=== PATIENT | female | born 1970 | race Caucasian/White ===

== ENCOUNTER → 2016-07-09 | Outpatient (CLI) | payer OTHER ==
--- NOTE | 2016-07-10 06:09 | ECHO ---
DATE OF PROCEDURE: 07/09/2016 DATE OF : 1970 AGE: 45 REFERRING PROVIDER: Dr. Torres Nelson. PATIENT LOCATION: Outpatient. REASON FOR ECHOCARDIOGRAM: Chemotherapy drug monitoring. 2D MEASUREMENTS: IVS: 0.9 cm LV: 4.3 cm LVPW: 0.9 cm LA: 3.5 cm Aorta: 2.7 cm IVC: 1.5 cm DOPPLER MEASUREMENTS: Peak velocity across the aortic valve: 1.5 m/s Peak velocity across the LVOT: 0.9 m/s Mitral E: 0.92 2D COMMENTS: 1. Normal left ventricular size, wall thickness and normal global left ventricular systolic function. The estimated global left ventricular ejection fraction is 65%. 2. Normal left atrium. Normal right atrium and right ventricle. 3. The atrial septum appeared to be normal without evidence of defect or shunt. 4. Normal aortic root. 5. No pericardial effusion seen. 6. The aortic valve, mitral valve, and tricuspid valve appeared to be normal. The pulmonic valve and proximal pulmonary artery branches were not well visualized. 7. The inferior vena cava was normal in size, central venous pressure is most likely normal. DOPPLER: It detects only trace mitral regurgitation and trace tricuspid regurgitation. The estimated pulmonary artery systolic pressure seems to be normal. IMPRESSION: 1. Normal global left ventricular systolic function. 2. Trace mitral regurgitation. 3. Trace tricuspid regurgitation.
== END ==
LOC: M CARPUL 09:22
PROVIDERS: ATTEND Internal Medicine Hematology & Oncology
DX: C50.411 Malignant neoplasm of upper-outer quadrant of right female breast (principal); Z17.0 Estrogen receptor positive status [ER+]; C50.812 Malignant neoplasm of overlapping sites of left female breast; C50.811 Malignant neoplasm of overlapping sites of right female breast; I34.0 Nonrheumatic mitral (valve) insufficiency; I36.1 Nonrheumatic tricuspid (valve) insufficiency

== ENCOUNTER → 2016-07-10 | Outpatient (CLI) | payer OTHER ==
--- NOTE | 2016-07-14 13:58 | RADONC ---
RADIATION ONCOLOGY CONSULTATION NOTE: DATE: 07/10/2016 DIAGNOSIS: Right breast cancer. STAGE: IIIA, [id number] DIAGNOSIS: Left breast cancer. STAGE: II A, [id number] ECOG PERFORMANCE STATUS: 0 Ms. Acevedo is a very pleasant 45-year-old white female with the diagnosis what appears to be a well differentiated infiltrating ductal carcinoma of the left breast clinical stage II A, little [id number] as well as a moderately differentiated invasive ductal carcinoma of the right breast clinical stage III A, [id number] who is presenting to us today for consideration of postoperative radiation therapy at least to the right chest wall and axilla in order to increase the likelihood of achieving local control. HISTORY OF PRESENT ILLNESS: The patient was in the usual state of health but was found on MRI of the breast on 11/06/2015 to have a large enhancing mass in the right breast in the upper outer quadrant. The mass measured 4.5 cm x 3.4 cm x 5.4 cm. The right upper outer quadrant breast mass was located at the 10 o'clock position. It was 9 mm from the nearest overlying skin and 4.1 cm from the chest wall. It was 12 cm from the nipple. In addition in the contralateral left breast in the 9 o'clock position posterior one-third there was another spiculated enhancing density which was also suspicious. It measured 2.6 cm x 1 cm x 2 cm. It was 8 mm to the nearest chest wall and 9 mm to the nearest skin. It was 13 cm from the nipple. In addition, the patient had a notable lymph node in the right axilla measuring 1.1 cm x 1.5 cm. The patient underwent biopsy of her right breast region including a biopsy at the 9 o'clock position and a biopsy at the 11 o'clock position and both revealed moderately differentiated infiltrating ductal carcinoma. Both showed tumors that were estrogen receptor and progesterone receptor positive. The right 11 o'clock position biopsy showed HER2 positivity. Biopsy of the left side was done on 11/16/2015 and also showed invasive moderately differentiated ductal carcinoma in situ. That tumor was also was positive for estrogen and progesterone receptor status and was HER2 negative. A PET scan was done on 11/20/2015 and was negative for any evidence of metastatic disease. An MRI of the brain was done on 11/16/2015 and showed no evidence of metastatic disease to the brain. Ms. Acevedo subsequently received neoadjuvant systemic therapy with AC/TPH regimen. The chemotherapy was delivered from 11/29/2015 to 05/07/2016. The patient subsequently underwent bilateral mastectomies with left sentinel lymph node biopsy and right complete axillary lymph node dissection followed by immediate reconstruction on 06/10/2016. Pathology revealed on the right side three foci of moderately differentiated invasive ductal carcinoma measuring 6 cm and 5 cm as well as 11 cm in greatest dimension. Two of the foci were located in the upper outer quadrant and one in the upper inner quadrant. There was extensive ductal carcinoma in situ noted which was intermediate grade. There was no evidence of lymph vascular invasion and the margins were negative for malignancy. A total of 11 right axillary lymph nodes were sampled and one was positive for metastatic disease measuring 5 mm. It was negative for any evidence of extranodal extension. Pathological evaluation of the left breast showed a residual 1.1 cm x 1 cm x 0.6 cm well-differentiated invasive ductal carcinoma present. There was no evidence of lymph vascular invasion. Of note, a deep margin was noted to be positive for invasive carcinoma. Further discussion in the discussion section of the path report notes that the carcinoma margins span 5 mm at its deep margin. It was confirmed that this was invasive carcinoma. It also noted that a single duct with DCIS extended to within less than 0.1 mm from the adjacent superficial margin. The patient has done well since her surgery and expanders are in place. She is now presenting for discussion of postoperative radiation therapy. PAST MEDICAL HISTORY: The patient's past medical history is generally noncontributory. She has been in excellent health. ALLERGIES: The patient has no known drug allergies. SOCIAL HISTORY: The patient does not smoke cigarettes. She drinks alcohol socially. FAMILY HISTORY: The patient's family history is positive for her father with lung cancer and two maternal aunts with breast cancer. REVIEW OF SYSTEMS: The patient's review of systems is positive for some shortness of breath and some physical limitations secondary to the tenderness following her breast expanders. This is otherwise noncontributory. She denies nausea, vomiting, fevers, chills, night sweats, diplopia, headaches, anxiety or depression, anorexia, weight loss, visual disturbances, chest pain, urinary or bowel difficulties, bone pain, or neurological problems. PHYSICAL EXAMINATION: The patient is a well-developed, well-nourished female in no acute distress. HEENT exam is normocephalic, atraumatic. Extraocular movements are intact. There is no palpable cervical, supraclavicular, infraclavicular, axillary, or inguinal lymphadenopathy present. Lungs are clear to auscultation and percussion. Heart has a regular rate and rhythm. Abdomen is benign with no hepatosplenomegaly, masses, or tenderness. Breast examination reveals bilateral mastectomy scars present. The scars are not fully healed and have some scab on them. The expanders are in place. The skin over the expanders is in good condition with no evidence of nodularity or recurrent disease. Skeletal examination reveals no tenderness to pressure or percussion of the bony skeleton. Extremities reveal no clubbing, cyanosis, or edema. Neurologic exam is grossly intact, as is the remainder of the physical examination. IMAGING: I have personally reviewed the patient's PET/CT scan done 02/18/2016 which shows no evidence of metastatic disease. ASSESSMENT: I had a very lengthy discussion with this patient and we discussed in detail the potential benefits as well as possible acute and chronic sequelae of external beam radiation therapy. We discussed logistics of treatment planning, simulation and subsequent fractionated daily radiation treatment. In light of the fact that the scars are not yet fully healed and the fact that she is scheduled to see her plastic surgeon on Thursday for further injection into the expanders we cannot initiate treatment planning until after the breasts have reached their stable size which will be continued throughout the course of treatment. If this is truly the last injection of material to expand the breast, then radiation treatment planning can begin subsequently. With regards to the patient's right breast, it is clear from her initial size of the lesion as well as her lymphadenopathy that she would qualify for postoperative radiation therapy in an attempt to increase the likelihood of achieving local control. We discussed the data with that and I have reviewed the NCCN guidelines with her. With regards to the left breast. I am concerned at the possibility of a 5 mm positive margin which is deep and therefore beneath the car trimmer. If a small recurrence should recur, it would be very difficult to clinically palpate this. In addition, she also had a very close margin with DCIS. I have set this patient up for discussion at our multidisciplinary tumor conference to further deal with this issue. I have requested the pathology slides to be sent for further evaluation as well. Clearly if there is a positive margin. The patient may benefit from radiation to the left breast as well. At the present time, however do not have enough information. I do no know if further excision was undertaken. We will follow up on this before making any formal recommendations with regards with the left breast. Thank you for allowing us to participate in the care of this very pleasant woman. I will keep you informed as to any new developments as they occur. If I could be of any further assistance or provide you with any information, please feel free to contact me at anytime. As always warm regards, cc: *Dr. Torres Nelson *Gabino Chiu, *May Dick MD *Eboni Ruiz, IRIS
== END ==
LOC: M ONCR 09:58
PROVIDERS: ATTEND Radiology Radiation Oncology
DX: C50.919 Malignant neoplasm of unspecified site of unspecified female breast (principal)

== ENCOUNTER → 2016-07-14 | Outpatient (CLI) | payer OTHER ==
--- NOTE | 2016-07-16 08:51 | DEXA ---
AP SPINE L1 - L4 1.240 0.4 -0.1 LT FEMUR TOTAL 1.112 0.8 0.7 RT FEMUR TOTAL 1.057 0.4 0.3 TOTAL BODY TOTAL OTHER DUAL FEMUR FRAX* ASSESSMENT Risk factors: Secondary osteoporosis, aromatase inhibitor. 10 year probability of fracture Major osteoporotic fracture 2.5 % Hip fracture 0.1 % COMMENTS: Normal bone densitometry of the spine and hips. FOLLOW-UP: Recommendation for the next bone density exam: 5 years. MTDD
== END ==
LOC: M WHC 09:17
PROVIDERS: ATTEND Internal Medicine Hematology & Oncology
DX: C50.411 Malignant neoplasm of upper-outer quadrant of right female breast (principal); C50.811 Malignant neoplasm of overlapping sites of right female breast; C50.812 Malignant neoplasm of overlapping sites of left female breast; Z17.0 Estrogen receptor positive status [ER+]

== ENCOUNTER → 2016-07-15 | Outpatient (CLI) | payer OTHER ==
[~2016-07-15] MED LIST: ISOVUE-370 76% 100ML VIAL (Q9967) As Ordered ONE
--- NOTE | 2016-07-15 12:08 | REP ---
Duplex extremity venous ultrasound: Left lower extremity. History: Left leg pain. Findings: The deep veins are anechoic and fully compressible from the groin to the popliteal fossa in the left lower extremity. Color flow imaging is homogeneous. Spectral Doppler interrogation demonstrates intact respiratory variation in flow and normal manual augmentation of flow. There is no evidence of deep vein thrombosis. Impression: Negative left lower extremity duplex venous ultrasound. No evidence of deep vein thrombosis. Signed by Que Quintanilla MD 07/15/2016 03:20 P
--- NOTE | 2016-07-15 12:09 | REP ---
CT pulmonary angiogram: With IV contrast. History: Shortness of breath, question pulmonary embolus. The patient has a history of breast cancer and bilateral mastectomy. Comparison studies: No comparisons. Contrast dose: 75 cc's of Isovue [address] technique: Helical scanning is acquired and overlapping 1.5 mm and contiguous 3 mm axial images are reformatted. In addition, a 3-D work station is deployed to generate thick slab maximum intensity projection images in sagittal and coronal imaging projections. CT pulmonary angiographic findings: There is good opacification of the pulmonary arterial tree. There are small filling defects in the pulmonary arterial tree consistent with emboli involving the right lower lobe, left upper lobe, and possibly left lower lobe segmental branches. No central embolus is seen. Thoracic aorta is normal in coarse, caliber, and homogeneous enhancement. No mass or infiltrate is seen in the lung brasher. There is no evidence of pleural effusion. There is some residual thymic tissue in the anterior mediastinum. No mediastinal mass or definite adenopathy is seen. There is a large hematoma seroma cavity in the left axillary soft tissues, 6.3 cm in greatest diameter. The patient is status post reconstruction breast augmentation bilaterally. No bony destructive lesion is appreciated. No adrenal lesion is observed. The visualized upper abdominal structures are unremarkable. Impression: 1. Several small segmental pulmonary emboli bilaterally as above. 2. Status post bilateral mastectomy and breast reconstruction. 3. A 6 cm hematoma/seroma cavity seen in the left axillary soft tissues. Signed by Que Quintanilla MD 07/15/2016 03:20 P
== END ==
LOC: M RAD 10:21
PROVIDERS: ATTEND Nurse Practitioner Family
DX: R06.02 Shortness of breath (principal); I26.99 Other pulmonary embolism without acute cor pulmonale; Z90.13 Acquired absence of bilateral breasts and nipples; S40.022A Contusion of left upper arm, initial encounter; X58.XXXA Exposure to other specified factors, initial encounter; Y92.9 Unspecified place or not applicable; Y93.9 Activity, unspecified; Y99.9 Unspecified external cause status
CPT/HCPCS: 71275; 93971; Q9967

== ENCOUNTER 2016-08-06 15:03 | Outpatient (RCR) | payer OTHER | END 2016-08-08 | LOC: M ONCR 15:03 | PROVIDERS: ATTEND Radiology Radiation Oncology | DX: C50.411 Malignant neoplasm of upper-outer quadrant of right female breast (principal); C50.812 Malignant neoplasm of overlapping sites of left female breast ==

== ENCOUNTER → 2016-08-06 | Outpatient (CLI) | payer OTHER | LOC: M RAD 14:13 | PROVIDERS: ATTEND Radiology Radiation Oncology | DX: C50.919 Malignant neoplasm of unspecified site of unspecified female breast (principal) ==

== ENCOUNTER 2016-08-11 07:54 | Outpatient (RCR) | payer OTHER ==
--- NOTE | 2016-08-19 07:08 | RADONC ---
RADIATION ONCOLOGY PROGRESS NOTE DATE: 08/18/2016 CHART NUMBER: [id number]. PROGRESS NOTE: Ms. Acevedo underwent her first fraction of 180 cGy to her bilateral breast today. It was tolerated without difficulty or discomfort. REVIEW OF SYSTEMS: The patient's review of systems is unchanged. She is having no breast or chest wall discomfort. Her review of systems is noncontributory. Denies nausea, vomiting, fevers, chills, night sweats, diplopia, headaches, anxiety or depression, anorexia, weight loss, visual disturbances, chest pain, urinary or bowel difficulties, bone pain, or neurological problems. PHYSICAL EXAMINATION: The patient's skin shows clearly shows no evidence of radiation change present. There is no moist or dry desquamation. The remainder of her physical exam remains unchanged. Ms. Acevedo is tolerating treatments quite well and radiation will continue as scheduled.
--- NOTE | 2016-08-25 09:58 | RADONC ---
RADIATION ONCOLOGY PROGRESS NOTE DATE: 08/25/2016 CHART NUMBER: [id number] Ms. Acevedo is presently at a dose of 1080 cGy to her bilateral breasts and right supraclavicular region and is tolerating treatments quite well at this point with no complaints related to her radiation therapy. She is having no breast or bone pain. REVIEW OF SYSTEMS: The patient's review of systems is noncontributory. Denies nausea, vomiting, fevers, chills, night sweats, diplopia, headaches, anxiety or depression, anorexia, weight loss, visual disturbances, chest pain, urinary or bowel difficulties, bone pain, or neurological problems. PHYSICAL EXAMINATION: The patient's skin is in excellent condition with no evidence of radiation change present. There is no moist or dry desquamation. The remainder of her physical exam remains unchanged. Ms. Acevedo is tolerating treatments quite well and radiation will continue as scheduled.
--- NOTE | 2016-09-02 06:55 | RADONC ---
DATE OF PROCEDURE: 09/01/2016 PROGRESS NOTE CHART NUMBER: [id number] Ms. Acevedo is presently at a dose of 1980 cGy to both her left and right breast and is tolerating treatments quite well at this point with no complaints related to her radiation therapy. She is having no chest wall or bone pain. REVIEW OF SYSTEMS: The patient's review of systems is noncontributory. Denies nausea, vomiting, fevers, chills, night sweats, diplopia, headaches, anxiety or depression, anorexia, weight loss, visual disturbances, chest pain, urinary or bowel difficulties, bone pain, or neurological problems. PHYSICAL EXAMINATION: The patient's skin is in good condition with no evidence of radiation change present. There is no moist or dry desquamation. The remainder of her physical exam remains unchanged. Ms. Acevedo is tolerating treatments quite well and radiation will continue as scheduled.
== END 2016-09-07 ==
LOC: M ONCR 07:54
PROVIDERS: ATTEND Radiology Radiation Oncology
DX: C50.411 Malignant neoplasm of upper-outer quadrant of right female breast (principal); C50.812 Malignant neoplasm of overlapping sites of left female breast

== ENCOUNTER 2016-09-08 09:28 | Outpatient (RCR) | payer OTHER ==
--- NOTE | 2016-09-09 07:50 | RADONC ---
RADIATION ONCOLOGY PROGRESS NOTE DATE OF SERVICE: 09/08/2016 CHART NO: [id number] Ms. Acevedo is presently at a dose of 2700 cGy to her left and right chest blackmon. She is tolerating treatments quite well at this point with no complaints related to her radiation therapy. REVIEW OF SYSTEMS: The patient's review of systems is noncontributory. Denies nausea, vomiting, fevers, chills, night sweats, diplopia, headaches, anxiety or depression, anorexia, weight loss, visual disturbances, chest pain, urinary or bowel difficulties, bone pain, or neurological problems. PHYSICAL EXAMINATION: The patient's skin is in good condition with no evidence of moist or dry desquamation. The remainder of physical exam remains unchanged. Ms. Acevedo is tolerating treatments quite well and radiation will continue as scheduled.
--- NOTE | 2016-09-15 11:21 | RADONC ---
RADIATION ONCOLOGY PROGRESS NOTE DATE: 09/15/2016 CHART NUMBER: [id number] Ms. Acevedo is thus far at a dose of 3600 cGy to her left and right breasts and is tolerating treatments quite well at this point with no complaints related to her radiation therapy. She is having no breast or bone pain. REVIEW OF SYSTEMS: The patient's review of systems is noncontributory. She denies nausea, vomiting, fevers, chills, night sweats, diplopia, headaches, anxiety or depression, anorexia, weight loss, visual disturbances, chest pain, urinary or bowel difficulties, bone pain, or neurological problems. PHYSICAL EXAMINATION: The patient's skin is in good condition with no evidence of radiation change present. There is no moist or dry desquamation. The remainder of her physical exam remains unchanged. Ms. Acevedo tolerating is tolerating treatments quite well and radiation will continue as scheduled.
[2016-09-19] MEDS ORDERED: SILV-4 TOP (09:18)
--- NOTE | 2016-09-22 11:08 | RADONC ---
RADIATION ONCOLOGY PROGRESS NOTE DATE: 09/22/2016 CHART NUMBER: [id number] Ms. Acevedo is presently at a dose of 4320 cGy to her bilateral chest blackmon and is tolerating treatments quite well at this point with no significant difficulties related to her radiation therapy other than some areas of brisk skin reaction. The patient's review of systems is positive for some slight skin discomfort but is otherwise noncontributory. She denies nausea, vomiting, fevers, chills, night sweats, diplopia, headaches, anxiety or depression, anorexia, weight loss, visual disturbances, chest pain, urinary or bowel difficulties, bone pain, or neurological problems. PHYSICAL EXAMINATION: The patient's skin, overall, is in generally good condition. There is a small area of dry desquamation in the axillary region on the left and another area of dry desquamation in the inframammary region on the right. The remainder of her physical exam remains unchanged. Ms. Acevedo is tolerating treatments quite well at this point, and radiation will continue as scheduled. She is continuing to use Silvadene for her local skin reaction.
--- NOTE | 2016-09-25 10:30 | RADONC ---
RADIATION ONCOLOGY TREATMENT SUMMARY: DATE: 09/25/2016 CHART NUMBER: [id number]. DIAGNOSES: Right breast cancer, stage III A, [id number]. Left breast cancer, stage II A, [id number] ECOG PERFORMANCE STATUS: Zero. TREATMENT SUMMARY: Ms. Acevedo is a very pleasant 45-year-old white female with the diagnosis what appears to be a well-differentiated infiltrating ductal carcinoma of the left breast clinical stage II A, [id number] as well as a moderately differentiated invasive ductal carcinoma of the right breast clinical stage III A, [id number] who presented to us for consideration of postoperative radiation therapy to her bilateral chest blackmon. We treated the patient to her bilateral chest blackmon for a total dose of 5040 cGy delivered in 28 fractions of 180 cGy each over 37 elapsed days from 08/18/2016 through 09/25/2016. The patient's bilateral chest blackmon were treated on a linear accelerator utilizing a combination of 6X and 18X photon beam. In addition, we treated the supraclavicular and axillary lymph nodes also for a dose of 5040 cGy delivered in 28 fractions of 180 cGy each. The anterior oblique field was angled 15 degrees away from the spinal cord and utilized a 6MV photon beam and a posterior axillary boost field utilized an 18MV photon beam to supplement the treatment once again bringing the total to 5040 cGy. Consideration was made to deliver some additional radiation to the tiny area of positive surgical margin on the left side. After carefully studying the issue however, the area to be treated, would have been quite large because we could not localize the tiny few millimeters in question. This may have compromised her reconstructive work and overall cosmetic result. Therefore, any potential benefit would have been very questionable, but the risks would be significant. That area did receive 5040 cGy at a minimum with higher isodose lines considered. In light of this, wee decided to complete therapy on both left and the right chest blackmon at 5040 cGy. I believe this patient would be at a much higher risk of developing metastatic disease than having a problem in this tiny area. The patient was able to complete therapy as prescribed without interruption or significant difficulties. I have scheduled the patient to see me again in 1 month for further followup. She also will be followed by her other physicians as well. cc: Harper Howard MD *Torres Nelson MD *May Dick MD *Eboni Ruiz, DIRECTOR FOOD AND BEVERAGE [facility] MEDICAL CENTERPetar
== END 2016-10-08 ==
LOC: M ONCR 09:28
PROVIDERS: ATTEND Radiology Radiation Oncology
DX: C50.411 Malignant neoplasm of upper-outer quadrant of right female breast (principal); C50.812 Malignant neoplasm of overlapping sites of left female breast

== ENCOUNTER → 2016-09-29 | Outpatient (CLI) | payer OTHER ==
[~2016-09-29] MED LIST changes: -ISOVUE-370 76% 100ML VIAL (Q9967) As Ordered ONE; +SILV-4 TOP
[2016-09-29 13:37] LABS: ALBUMIN/GLOBULIN RATIO 1.18 (1.00-1.93); ALKALINE PHOSPHATASE 151 U/L (45-117); ALT/SGPT 29 U/L (12-78); ANION GAP 9 MEQ/L (8-16); AST/SGOT 16 U/L (15-37); BILIRUBIN,TOTAL 0.4 MG/DL (0.2-1.0); BLOOD UREA NITROGEN 12 MG/DL (7-18); CALCIUM LEVEL 9.8 MG/DL (8.5-10.1); CARBON DIOXIDE LEVEL 27 MEQ/L (21-32); CHLORIDE LEVEL 105 MEQ/L (98-107); CHOLESTEROL LEVEL 299 MG/DL (<200); CREATININE FOR GFR 0.72 MG/DL (0.55-1.02); GLOMERULAR FILTRATION RATE > 60.0 (>58); GLUCOSE, FASTING 91 MG/DL (70-105); POTASSIUM SERUM 4.4 MEQ/L (3.5-5.1); SODIUM LEVEL 141 MEQ/L (136-145); TOTAL PROTEIN 7.4 GM/DL (6.4-8.2); TRIGLYCERIDES LEVEL 274 MG/DL (<150)
== END ==
LOC: M LAB 12:10
PROVIDERS: ATTEND Family Medicine
DX: I10 Essential (primary) hypertension (principal); Z13.1 Encounter for screening for diabetes mellitus; E78.5 Hyperlipidemia, unspecified

== ENCOUNTER → 2016-09-29 | Outpatient (CLI) | payer OTHER ==
[2016-09-29 13:06] LABS: BASO % 0.8 % (0.0-1.0); EOS # 0.1 K/mm3 (0.0-0.50); EOS % 3.2 % (0.0-3.0); LYMPH # 0.5 K/mm3 (1.5-4.5); LYMPH % 13.4 % (24.0-44.0); MEAN CORPUSCULAR HEMOGLOBIN 30.6 pg (27.0-33.0); MEAN CORPUSCULAR HGB CONC 34.3 g/dl (32.0-36.5); MEAN CORPUSCULAR VOLUME 89.2 fl (80.0-96.0); MONO # 0.4 K/mm3 (0.0-0.8); MONO % 10.1 % (0.0-5.0); NEUTROPHILS # 2.5 K/mm3 (1.8-7.7); NEUTROPHILS % 69.5 % (36.0-66.0); RED CELL DISTRIBUTION WIDTH 15.4 % (11.5-14.5); WHITE BLOOD COUNT 3.6 K/mm3 (4.0-10.0)
[2016-09-29 13:39] LABS: ALBUMIN 4.1 GM/DL (3.2-5.2); ALBUMIN/GLOBULIN RATIO 1.24 (1.00-1.93); ALKALINE PHOSPHATASE 158 U/L (45-117); ALT/SGPT 28 U/L (12-78); ANION GAP 8 MEQ/L (8-16); AST/SGOT 15 U/L (15-37); BILIRUBIN,TOTAL 0.5 MG/DL (0.2-1.0); BLOOD UREA NITROGEN 12 MG/DL (7-18); CALCIUM LEVEL 9.8 MG/DL (8.5-10.1); CARBON DIOXIDE LEVEL 28 MEQ/L (21-32); CHLORIDE LEVEL 104 MEQ/L (98-107); CREATININE FOR GFR 0.73 MG/DL (0.55-1.02); GLOMERULAR FILTRATION RATE > 60.0 (>58); GLUCOSE, FASTING 91 MG/DL (70-105); POTASSIUM SERUM 4.3 MEQ/L (3.5-5.1); SODIUM LEVEL 140 MEQ/L (136-145); TOTAL PROTEIN 7.4 GM/DL (6.4-8.2)
== END ==
LOC: M LAB 12:13
PROVIDERS: ATTEND Internal Medicine Hematology & Oncology
DX: C50.411 Malignant neoplasm of upper-outer quadrant of right female breast (principal); C50.811 Malignant neoplasm of overlapping sites of right female breast; C50.812 Malignant neoplasm of overlapping sites of left female breast; Z17.0 Estrogen receptor positive status [ER+]

== ENCOUNTER → 2016-10-02 | Outpatient (CLI) | payer OTHER ==
--- NOTE | 2016-10-02 19:14 | ECHO ---
DATE OF PROCEDURE: 10/02/2016 REFERRING PHYSICIAN: Dr. Torres Nelson INDICATION: Chemotherapy. Study was performed on outpatient basis. HEIGHT: 157 WEIGHT: 84 kg DIMENSIONS: IVS: 1.1 LV: 4.9 LVPW: 1.1 LA: 3.5 Aorta: 3.1 FINDINGS: Study is of difficult technical quality. There are decent parasternal and subcostal views but apical views are complicated by presence of tissue store consultant. The patient is in sinus rhythm. Left ventricle is of normal size and normal systolic function. I estimate ejection fraction (EF) around 60-65%. Right ventricle is also normal size and systolic function. Both atria appear grossly normal. Aortic, mitral, tricuspid and pulmonic valve appear normal based on limited views. There is no pericardial effusion. Inferior vena cava was not is of relatively small caliber indicative of normal central venous pressure. Aortic root is normal. Aortic arch was not seen. Abdominal aorta appears normal. Doppler interrogation reveals no significant aortic stenosis or insufficiency. There is mild mitral insufficiency and no tricuspid insufficiency. Pulmonic valve exhibits trace insufficiency. Mitral inflow pattern is normal. Due to limitation of the study tissue Doppler velocities of mitral annulus were not obtained. CONCLUSIONS: 1. Study is of fair technical quality. 2. Normal left ventricle (LV) size with normal LV systolic function and probably normal diastolic function. 3. No significant valvular disease. 4. Normal central venous pressure. 5. Unable to estimate pulmonary artery pressure. COMMENTS: Subacute bacterial endocarditis (SBE) prophylaxis is not recommended.
== END ==
LOC: M CARPUL 08:22
PROVIDERS: ATTEND Internal Medicine Hematology & Oncology
DX: C50.411 Malignant neoplasm of upper-outer quadrant of right female breast (principal); C50.811 Malignant neoplasm of overlapping sites of right female breast; C50.812 Malignant neoplasm of overlapping sites of left female breast; Z17.0 Estrogen receptor positive status [ER+]; Z92.21 Personal history of antineoplastic chemotherapy

== ENCOUNTER → 2016-11-05 | Outpatient (CLI) | payer OTHER ==
--- NOTE | 2016-11-05 09:31 | RADONC ---
RADIATION ONCOLOGY FOLLOWUP NOTE DATE: 11/05/2016 CHART NUMBER: [id number] DIAGNOSIS: Right breast cancer. Stage III A, [id number]. Diagnosis of left breast cancer. Stage II A, [id number]. ECOG performance status zero. FOLLOWUP NOTE: Ms. Acevedo is a very pleasant 46-year-old white female with the diagnosis of what appears to be a well-differentiated infiltrating ductal carcinoma of the left breast, clinical stage III A, [id number], as well as, a moderately differentiated invasive ductal carcinoma of the right breast clinical stage III A, [id number], who is presenting to us today for routine followup visit 1 month post completion of external beam radiation therapy. The patient presents today reporting that she is doing quite well with no complaints at this time related to her radiation therapy or disease. She is having no chest wall or bone pain. REVIEW OF SYSTEMS: The patient's review of systems is noncontributory. Denies nausea, vomiting, fevers, chills, night sweats, diplopia, headaches, anxiety or depression, anorexia, weight loss, visual disturbances, chest pain, urinary or bowel difficulties, bone pain, or neurological problems. PHYSICAL EXAMINATION: The patient is a well-developed, well-nourished, 46-year-old female in no acute distress. HEENT exam is normocephalic, atraumatic. Extraocular movements are intact. There is no palpable cervical, supraclavicular, infraclavicular, axillary, or inguinal lymphadenopathy present. Lungs are clear to auscultation and percussion. Heart has a regular rate and rhythm. Abdomen is benign with no hepatosplenomegaly, masses, or tenderness. Chest wall examination reveals bilateral chest blackmon without nodularity, ulceration, or evidence of residual disease. There is some radiation tanning present. Reconstruction has been undertaken. Cosmetic result is excellent. Skeletal examination reveals no tenderness to pressure or percussion of the bony skeleton. Extremities reveal no clubbing, cyanosis, or edema. Neurologic exam is grossly intact, as is the remainder of the physical examination. ASSESSMENT: The patient is clinically SCOTTIE at this time and will be seen by us again in 6 months for further followup. She will also continue to be followed by her other physicians as well. cc: MD Harper Muir MD Kara Kort, MD Sharon Tenney
== END ==
LOC: M ONCR 08:53
PROVIDERS: ATTEND Radiology Radiation Oncology
DX: C50.411 Malignant neoplasm of upper-outer quadrant of right female breast (principal); C50.812 Malignant neoplasm of overlapping sites of left female breast

== ENCOUNTER → 2017-01-02 | Outpatient (CLI) | payer OTHER ==
--- NOTE | 2017-01-02 21:59 | ECHO ---
DATE OF PROCEDURE: 01/02/2017 REFERRING PHYSICIAN: Torres Nelson MD INDICATION: Chemotherapy drugs that may affect the heart. HEIGHT: 62 inches WEIGHT: 188 pounds 2D MEASUREMENTS: Aortic root: 2.7 cm Left atrium: 3.7 cm Ventricular septum: 1.02 cm Posterior wall: 1.04 cm Left ventricle diastole: 4.3 cm LVOT: 2.0 cm DOPPLER MEASUREMENTS: Aortic valve velocity: 109 cm/s LVOT velocity: 54.0 cm/s Mitral E velocity: 39.2 cm/s Mitral A velocity: 50.6 cm/s Mitral deceleration time: 116 ms Pulmonary artery systolic pressure 39 mmHg by pulmonary acceleration time method. MITRAL ANNULAR TISSUE DOPPLER: E prime septal: 7.8 cm/s E prime lateral: 10.0 cm/s DESCRIPTION: Rhythm was sinus. This is a moderately technically difficult echocardiogram. This is a 2D, M-mode, color flow Doppler and pulse wave Doppler examination that included mitral annular tissue Doppler. CONCLUSIONS: 1. Normal left ventricle internal dimensions and wall thickness. Normal left ventricle (LV) wall motion and wall thickening. Normal LV systolic function. Left ventricular ejection fraction (LVEF) 60% by visual estimate. LV diastolic function within normal limits for age. 2. No pericardial effusion. 3. Suggestive of mild elevation of pulmonary artery systolic pressure. 4. Moderately technically difficult echocardiogram.
== END ==
LOC: M CARPUL 08:44
PROVIDERS: ATTEND Internal Medicine Hematology & Oncology
DX: C50.411 Malignant neoplasm of upper-outer quadrant of right female breast (principal); C50.811 Malignant neoplasm of overlapping sites of right female breast; Z17.0 Estrogen receptor positive status [ER+]; C50.812 Malignant neoplasm of overlapping sites of left female breast; R94.31 Abnormal electrocardiogram [ECG] [EKG]; Z92.21 Personal history of antineoplastic chemotherapy

== ENCOUNTER → 2017-03-27 | Outpatient (CLI) | payer OTHER ==
--- NOTE | 2017-03-30 06:24 | ECHO ---
DATE OF PROCEDURE: 03/27/2017 DATE OF : 1970 AGE: 46 HEIGHT: 157 cm WEIGHT: 85 kg BODY SURFACE AREA: 1.85 meters squared OUTPATIENT REFERRING PHYSICIAN: Dr. Torres Nelson INDICATION: Potentially cardiotoxic chemotherapy. MEASUREMENTS: 2D Measurements RV: 3.4 cm LV: 4.2 cm Septum: 1.0 cm Posterior wall: 1.0 cm Aortic root: 2.8 cm LA: 3.7 cm LVEF: 60% COMMENTS: Sinus tachycardia without intraventricular conduction service. Technically challenging study related to the patient's body habitus and breast extenders, but diagnostically useful information was still obtained. Normal cardiac chamber sizes and wall thickness. On real-time imaging from the parasternal and subcostal projections, wall motion was symmetrical and normal. Normal-appearing mitral valvular apparatus and leaflet excursion with no posterior systolic buckling. Could not clearly visualize his aortic valve, but this was not thickened and did open normally against aortic stenosis. The aortic root was normal. Small anterior echo-free space, but no evidence of cardiac chamber compression. No apparent intracardiac mass. Color flow Doppler study taken from the parasternal and apical projection showed very mild mitral and tricuspid insufficiency. In light of our technical difficulties, could not get appropriate alignment of Doppler examination to further define valvular and LV diastolic function. Continuous wave Doppler of her tricuspid valve from the subcostal four-chamber projections allowed our estimation of her right ventricular systolic pressure (within normal limits). We could not clearly visualize her inferior vena cava. CONCLUSIONS: 1. Technically difficult study. 2. Normal left ventricular size, wall thickness and wall motion. 3. Normal left atrial size. Could not clearly comment on LV diastolic function. 4. Normal right heart chamber sizes and estimated right ventricular systolic pressure. 5. Valvular structures did not appear to be abnormal and functioned appropriately. 6. Small pericardial effusion without evidence of cardiac chamber compression. MTDD
== END ==
LOC: M CARPUL 08:09
PROVIDERS: ATTEND Internal Medicine Hematology & Oncology
DX: C50.411 Malignant neoplasm of upper-outer quadrant of right female breast (principal); C50.811 Malignant neoplasm of overlapping sites of right female breast; C50.812 Malignant neoplasm of overlapping sites of left female breast; Z17.0 Estrogen receptor positive status [ER+]

== ENCOUNTER → 2017-06-03 | Outpatient (CLI) | payer OTHER | LOC: M ONCR 13:00 | DX: C50.812 Malignant neoplasm of overlapping sites of left female breast (principal); C50.411 Malignant neoplasm of upper-outer quadrant of right female breast | CPT/HCPCS: G0463 ==

== ENCOUNTER → 2017-08-03 | Outpatient (CLI) | payer OTHER | LOC: M CARPUL 09:00 | DX: C50.411 Malignant neoplasm of upper-outer quadrant of right female breast (principal); C50.812 Malignant neoplasm of overlapping sites of left female breast; I26.99 Other pulmonary embolism without acute cor pulmonale; C50.811 Malignant neoplasm of overlapping sites of right female breast; R93.1 Abnormal findings on diagnostic imaging of heart and coronary circulation ==

== ENCOUNTER → 2017-09-07 | Outpatient (CLI) | payer OTHER | LOC: M CARPUL 07:47 | DX: R06.02 Shortness of breath (principal) | CPT/HCPCS: 94010 ==

== ENCOUNTER → 2017-12-30 | Outpatient (CLI) | payer OTHER | LOC: M ONCR 15:27 | DX: C50.411 Malignant neoplasm of upper-outer quadrant of right female breast (principal); C50.812 Malignant neoplasm of overlapping sites of left female breast | CPT/HCPCS: G0463 ==

== ENCOUNTER → 2018-04-05 | Outpatient (REF) | payer OTHER ==
[2018-04-06 10:17] LABS: APPEARANCE, URINE CLEAR (CLEAR); BACTERIA, URINE AUTO NEGATIVE (NEGATIVE); BILIRUBIN, URINE AUTO NEGATIVE (NEGATIVE); BLOOD, URINE BLOOD NEGATIVE (NEGATIVE); COLOR, URINE STRAW (YELLOW); GLUCOSE, URINE (UA) AUTO NEGATIVE (NEGATIVE); KETONE, URINE AUTO NEGATIVE (NEGATIVE); LEUKOCYTE ESTERASE, URINE AUTO NEGATIVE (NEGATIVE); NITRITE, URINE AUTO NEGATIVE (NEGATIVE); PROTEIN, URINE AUTO NEGATIVE (NEGATIVE); RBC, URINE AUTO 1 /HPF (0-3); SPECIFIC GRAVITY URINE AUTO 1.003 (1.002-1.035); SQUAMOUS EPITHELIAL CELL UR AU 0 /HPF (0-6); UROBILINOGEN, URINE AUTO 0.2 mg/dL (0.0-2.0); WBC, URINE AUTO 1 /HPF (0-3)
== END ==
LOC: M SFHCPLAZ 09:47
DX: N30.90 Cystitis, unspecified without hematuria (principal)

== ENCOUNTER → 2018-04-07 | Outpatient (REF) | payer OTHER ==
[2018-04-07 12:23] LABS: APPEARANCE, URINE CLEAR (CLEAR); BACTERIA, URINE AUTO NEGATIVE (NEGATIVE); BILIRUBIN, URINE AUTO NEGATIVE (NEGATIVE); BLOOD, URINE BLOOD NEGATIVE (NEGATIVE); COLOR, URINE YELLOW (YELLOW); GLUCOSE, URINE (UA) AUTO NEGATIVE (NEGATIVE); KETONE, URINE AUTO NEGATIVE (NEGATIVE); LEUKOCYTE ESTERASE, URINE AUTO NEGATIVE (NEGATIVE); NITRITE, URINE AUTO NEGATIVE (NEGATIVE); PROTEIN, URINE AUTO NEGATIVE (NEGATIVE); RBC, URINE AUTO 3 /HPF (0-3); SPECIFIC GRAVITY URINE AUTO 1.018 (1.002-1.035); SQUAMOUS EPITHELIAL CELL UR AU 0 /HPF (0-6); UROBILINOGEN, URINE AUTO 0.2 mg/dL (0.0-2.0); WBC, URINE AUTO 1 /HPF (0-3)
[2018-04-07 12:26] LABS: BASO % 0.7 % (0.0-1.0); EOS # 0.1 10^3/uL (0.0-0.50); EOS % 2.1 % (0.0-3.0); HEMATOCRIT 39.5 % (36.0-47.0); HEMOGLOBIN 13.1 g/dl (12.0-15.5); IMMATURE GRANULOCYTE % 0.2 % (0-3.0); LYMPH # 1.3 10^3/uL (1.5-4.5); LYMPH % 21.7 % (24.0-44.0); MEAN CORPUSCULAR HEMOGLOBIN 30.5 pg (27.0-33.0); MEAN CORPUSCULAR HGB CONC 33.2 g/dl (32.0-36.5); MEAN CORPUSCULAR VOLUME 91.9 fl (80.0-96.0); MONO # 0.6 10^3/uL (0.0-0.8); MONO % 10.2 % (0.0-5.0); NEUTROPHILS # 3.8 10^3/uL (1.8-7.7); NEUTROPHILS % 65.1 % (36.0-66.0); PLATELET COUNT, AUTOMATED 305 10^3/uL (150-450); RED CELL DISTRIBUTION WIDTH 12.9 % (11.5-14.5); WHITE BLOOD COUNT 5.8 10^3/uL (4.0-10.0)
[2018-04-07 12:54] LABS: ANION GAP 5 MEQ/L (8-16); BLOOD UREA NITROGEN 15 MG/DL (7-18); CALCIUM LEVEL 9.6 MG/DL (8.5-10.1); CARBON DIOXIDE LEVEL 30 MEQ/L (21-32); CHLORIDE LEVEL 103 MEQ/L (98-107); CHOLESTEROL LEVEL 263 MG/DL (<200); CHOLESTEROL RISK RATIO 4.962 (<5); GLOMERULAR FILTRATION RATE > 60.0 (>58); GLUCOSE, FASTING 85 MG/DL (70-100); HDL CHOLESTEROL 53 MG/DL (>40); LDL CHOLESTEROL 132 MG/DL (<100); NON-HDL-C 210 MG/DL; POTASSIUM SERUM 5.2 MEQ/L (3.5-5.1); SODIUM LEVEL 138 MEQ/L (136-145); TRIGLYCERIDES LEVEL 391 MG/DL (<150)
[2018-04-07 12:55] LABS: VITAMIN B12 LEVEL 393 PG/ML
[2018-04-07 12:56] LABS: FOLATE > 24.0 NG/ML
== END ==
LOC: M SFHCPLAZ 09:15
DX: N30.90 Cystitis, unspecified without hematuria (principal); Z13.29 Encounter for screening for other suspected endocrine disorder; Z13.6 Encounter for screening for cardiovascular disorders; Z13.1 Encounter for screening for diabetes mellitus; R42 Dizziness and giddiness

== ENCOUNTER → 2018-04-28 | Outpatient (CLI) | payer OTHER ==
--- NOTE | 2018-04-28 16:50 | REP ---
MR BRAIN WITHOUT CONTRAST: HISTORY: Vertigo. Several punctate areas of increased signal intensity on T2-weighted images are present in the periventricular and subcortical white matter. This represents small vessel ischemic disease. There is no intraparenchymal hemorrhage, infarct, mass or midline shift. The ventricular system is normal in appearance. There is no extracerebral collection. The sinuses are clear. IMPRESSION: Minimal small vessel ischemic disease. Electronically Signed by Neeraj Justice MD 04/28/2018 04:52 P
== END ==
LOC: M RAD 15:45
PROVIDERS: ATTEND Obstetrics & Gynecology
DX: R90.82 White matter disease, unspecified (principal); R42 Dizziness and giddiness

== ENCOUNTER 2018-04-29 08:10 | Outpatient (RCR) | payer OTHER | END 2018-05-10 | LOC: M PT 08:10 | PROVIDERS: ATTEND Obstetrics & Gynecology | DX: R42 Dizziness and giddiness (principal) ==

== ENCOUNTER 2018-05-14 08:12 | Outpatient (RCR) | payer OTHER | END 2018-06-10 | LOC: M PT 08:12 | PROVIDERS: ATTEND Obstetrics & Gynecology | DX: R42 Dizziness and giddiness (principal) ==

== ENCOUNTER → 2018-05-18 | Outpatient (CLI) | payer OTHER ==
[~2018-05-18] MED LIST changes: +PROHANCE 279.3MG/ML 15ML VIAL (A9576) As Ordered ONE; +PROHANCE 279.3MG/ML 5ML VIAL (A9576) As Ordered ONE
--- NOTE | 2018-05-19 08:32 | REP ---
MRI of the left shoulder without and with IV gadolinium: History: Patient with history of stage III breast carcinoma and a palpable abnormality in the left anterior shoulder region. Report of sonography done at an outside institution describes a 4.3 x 4.5 x 1.6 cm isoechoic area. Further evaluation requested by MRI. No other comparison study. Technique: Skin markers are affixed to the skin at the level of the palpable abnormality. Axial, coronal, and sagittal imaging planes are utilized. T1 and T2-weighted scans were obtained with and without fat saturation. Gadolinium enhancement dose is 16 ml of intravenous ProHance. MRI findings: Cortical and medullary bone signal intensity are normal. There is no evidence to suggest skeletal metastatic lesion. There is fairly advanced tendinosis in the distal subscapularis tendon and to some degree supraspinatus tendons. There is osteoarthritic hypertrophy at the AC joint. Anteriorly at the level of the skin markers, there is a linear area of slightly enhancing fibrosis without observable neoplastic mass. There is a partially defined fat lobule which may be a nonencapsulated lipoma. This measures 3.1 x 4.3 cm and may correspond to the sonographic findings of an isoechoic area. If there is a history of trauma or ecchymosis here, the linear pattern of enhancement may be fibrosis secondary to trauma. There is no discernible metastasis to the soft tissues. Skeletal muscle signal intensity is normal. No other abnormal gadolinium enhancement is seen. Impression: There is evidence of an unencapsulated lipoma approximately the same size as the sonographic findings which were reported. There is a small zone of linear fibrosis along the anterior aspect of this in the subcutaneous space. There is no evidence of soft tissue metastasis. There is fairly advanced tendinosis in the distal subscapularis and supraspinatus tendons. AC joint osteoarthritis. Electronically Signed by Que Quintanilla MD 05/19/2018 09:34 A
== END ==
LOC: M RAD 16:43
PROVIDERS: ATTEND Internal Medicine Hematology & Oncology
DX: D17.21 Benign lipomatous neoplasm of skin and subcutaneous tissue of right arm (principal); C50.919 Malignant neoplasm of unspecified site of unspecified female breast
CPT/HCPCS: 73223; A9576

== ENCOUNTER → 2018-05-18 | Outpatient (REF) | payer OTHER ==
[~2018-05-18] MED LIST changes: -PROHANCE 279.3MG/ML 15ML VIAL (A9576) As Ordered ONE; -PROHANCE 279.3MG/ML 5ML VIAL (A9576) As Ordered ONE
[2018-05-18 14:17] LABS: RHEUMATOID FACTOR QUANT < 10.0 IU/ML (<15.0); TOTAL PROTEIN 7.4 GM/DL (6.4-8.2)
[2018-05-18 14:19] LABS: HEMOGLOBIN A1c 5.3 %
[2018-05-20 13:47] LABS: ALBUMIN 4.63 GM/DL (3.29-5.55); ALBUMIN % 62.6 % (55.8-66.1); ALPHA-1-GLOBULIN % 4.1 % (2.9-4.9); ALPHA-2-GLOBULINS 0.78 GM/DL (0.42-0.99); ALPHA-2-GLOBULINS % 10.6 % (7.1-11.8); BETA-1-GLOBULINS 0.51 GM/DL (0.28-0.60); BETA-1-GLOBULINS % 6.9 % (4.7-7.2); BETA-2-GLOBULINS 0.43 GM/DL (0.19-0.55); BETA-2-GLOBULINS % 5.8 % (3.2-6.5); GAMMA GLOBULINS 0.74 GM/DL (0.65-1.58)
[2018-05-22 00:08] LABS: ANTINUCLEAR ANTIBODIES DIRECT Negative (Negative); CERULOPLASMIN 35.6 mg/dL (19.0-39.0); COPPER PLASMA 116 ug/dL (72-166); LEAD BLOOD ADULT 2 ug/dL (0-4); MERCURY LEVEL None Detected ug/L (0.0-14.9); VITAMIN B6,PYRIDOXAL PHOSPHATE 55.7 ug/L (2.0-32.8); VITAMIN E(ALPHA TOCOPHEROL) 20.4 mg/L (7.0-25.1); VITAMIN E(GAMMA TOCOPHEROL) 2.9 mg/L (0.5-5.5)
== END ==
LOC: M LABNEURO 09:44
PROVIDERS: ATTEND Psychiatry & Neurology Neurology
DX: E11.40 Type 2 diabetes mellitus with diabetic neuropathy, unspecified (principal)

== ENCOUNTER → 2018-06-30 | Outpatient (CLI) | payer OTHER ==
--- NOTE | 2018-07-01 15:04 | RADONC ---
RADIATION ONCOLOGY FOLLOWUP DATE: 06/30/2018 CHART NUMBER: [id number] DIAGNOSIS: Right breast cancer. STAGE: Stage III A, [id number]. DIAGNOSIS: Left breast cancer. STAGE: Stage II A, [id number]. ECOG PERFORMANCE STATUS: 0. FOLLOWUP NOTE: Mrs. Acevedo, with a diagnosis of right and left breast cancer, with the left breast cancer being a well differentiated infiltrating ductal carcinoma, clinical stage III A, [id number], as well as a moderately differentiated invasive carcinoma of the right breast, clinical stage IIIA, [id number], returns today for a followup visit. She completed external beam radiotherapy on 09/25/2016. Since this time, she has been doing quite well and she was last in approximately 6 months ago. She has no complaints referable to her disease or to her radiotherapy with the exception of some firmness in the inferior aspect of both chest wall regions just below the implants. She denies any nausea, vomiting, coughing, sputum production or hemoptysis. She also denies significant chest pain but may have some minimal tenderness within the scar tissue below the implants. REVIEW OF SYSTEMS: Basically noncontributory with the exception of above. But she also denies any fevers, chills, night sweats, diplopia, headaches, anxiety, depression, anorexia, weight loss, visual disturbances, chest pain, urinary or bowel difficulties, bone pain or neurologic issues with the exception of some sciatic, which has been ongoing for many years, and some neuropathy consistent with bilateral carpal tunnel syndrome. EXAMINATION FINDINGS: The skin within the irradiated volume shows subcutaneous fibrosis but no telangiectasia. There is no palpable peripheral lymphadenopathy. Chest wall reveals bilateral implants with no palpable local regional recurrence but some increase fibrosis just inferior to the implants bilaterally. Lungs are clear to auscultation and percussion. Heart is regular without murmurs. Abdomen without evidence of hepatomegaly, masses, deep abdominal tenderness. Extremities without cyanosis, clubbing or edema. Neurologic examination appears to be grossly physiologic and nonfocal. IMPRESSION: Clinically SCOTTIE at this time. PLAN: Return to clinic in approximately 6 months or p.r.n. She was advised to return to her referring physicians as per their directions and instructions. Thank you for allowing us the opportunity of participation in the management this ruddy patient. cc: MD Harper Muir MD Kara Kort, MD Sharon Tenney
== END ==
LOC: M ONCR 15:23
PROVIDERS: ATTEND Radiology Radiation Oncology
DX: Z08 Encounter for follow-up examination after completed treatment for malignant neoplasm (principal); L90.5 Scar conditions and fibrosis of skin; Z92.3 Personal history of irradiation; M54.30 Sciatica, unspecified side; Z90.13 Acquired absence of bilateral breasts and nipples; Z85.3 Personal history of malignant neoplasm of breast; Z98.82 Breast implant status

== ENCOUNTER → 2018-09-01 | Outpatient (CLI) | payer OTHER ==
--- NOTE | 2018-09-02 12:02 | DEXA ---
AP SPINE L1 - L4 1.024 -1.4 -1.1 LT FEMUR TOTAL 1.020 0.1 0.5 LT NECK 0.878 -1.2 -0.5 RT FEMUR TOTAL 1.024 0.1 0.5 RT NECK 0.911 -0.9 -0.2 TOTAL BODY TOTAL OTHER COMMENTS: Normal bone densitometry of the right hip. There is low bone density of the spine. There is low bone density of the left hip. The density of the spine has decreased 17.4% since 07/14/2016. The density of the left hip has decreased 8.3% since 07/14/2016. The density of the right hip has decreased 3.1% since 07/14/2016. FOLLOW-UP: Recommendation for the next bone density exam: 2 years. SYLVIA
== END ==
LOC: M WHC 08:03
PROVIDERS: ATTEND Internal Medicine Hematology & Oncology
DX: Z13.820 Encounter for screening for osteoporosis (principal); M85.89 Other specified disorders of bone density and structure, multiple sites; C50.812 Malignant neoplasm of overlapping sites of left female breast; C50.411 Malignant neoplasm of upper-outer quadrant of right female breast

== ENCOUNTER → 2018-12-22 | Outpatient (CLI) | payer OTHER ==
--- NOTE | 2018-12-27 13:32 | RADONC ---
RADIATION ONCOLOGY FOLLOWUP NOTE DATE: 12/22/2018 CHART NUMBER: [id number] DIAGNOSIS #1: Right breast cancer. STAGE: III A, [id number]. DIAGNOSIS #2: Left breast cancer, stage II A, [id number]. ECOG PERFORMANCE STATUS: 0 FOLLOWUP NOTE: Mrs. Acevedo with a diagnosis of right and left breast cancer with the left breast cancer being a well differentiated infiltrating ductal carcinoma, clinical stage III A, [id number], as well as a moderately differentiated invasive carcinoma of the right breast, clinical stage III A, [id number], returns today for followup after having completed a course of external beam radiotherapy on 09/25/2016. Since this time, she has been doing quite well and has routine CT scans every 6 months, which have failed to demonstrate any signs of tumor recurrence. She has no complaints referable to her disease or to her treatments. REVIEW OF SYSTEMS: The patient claims that she has some firmness in the inferior aspect of both chest wall regions just below the implants. She denies any nausea, vomiting, coughing, sputum production or hemoptysis. She also denies significant chest pain, but the breasts have some tenderness within the scar tissue below the implants. Her energy level is such that she is able to maintain most day-to-day activities without any alteration of her lifestyle. The remainder of her review of systems is unchanged as she denies any fevers, chills, night sweats, diplopia, headaches, anxiety, depression, anorexia, weight loss, visual disturbances, chest pain, urinary or bowel difficulties, bone pain, neurologic issues, or other skin issues. EXAMINATION FINDINGS: The skin within the irradiated volume shows some subcutaneous fibrosis but no telangiectasias. No palpable peripheral lymphadenopathy is appreciated. Chest wall reveals bilateral implants with no palpable local regional recurrence but some increase fibrosis just inferior to the implants bilaterally. Lungs are clear to auscultation and percussion. Heart regular without murmurs. Abdomen without evidence of hepatomegaly, masses, deep abdominal tenderness. Extremities without cyanosis, clubbing or edema. Neurologic examination grossly physiologic. IMPRESSION: Clinically SCOTTIE at this time. PLAN: Would like to see her on a p.r.n. basis and she was advised to return to her referring physicians as per their directions and instructions. cc: MD May Muir MD Sharon Tenney
== END ==
LOC: M ONCR 15:25
PROVIDERS: ATTEND Radiology Radiation Oncology
DX: C50.411 Malignant neoplasm of upper-outer quadrant of right female breast (principal); C50.812 Malignant neoplasm of overlapping sites of left female breast

== ENCOUNTER → 2019-07-20 | Outpatient (REF) | payer OTHER | LOC: M SFHCWAGY 13:50 | PROVIDERS: ATTEND Nurse Practitioner Family | DX: Z12.4 Encounter for screening for malignant neoplasm of cervix (principal) ==

== ENCOUNTER → 2019-10-14 | Outpatient (CLI) | payer OTHER | LOC: M LAB 14:07 | PROVIDERS: ATTEND Internal Medicine Hematology & Oncology | DX: C50.411 Malignant neoplasm of upper-outer quadrant of right female breast (principal) ==

== ENCOUNTER → 2020-03-29 | Outpatient (CLI) | payer OTHER | LOC: M LABSMTC 09:48 | PROVIDERS: ATTEND Surgery | DX: Z20.828 Contact with and (suspected) exposure to other viral communicable diseases (principal) ==

== ENCOUNTER → 2020-05-19 | Outpatient (CLI) | payer OTHER ==
[2020-05-19 11:52] LABS: BLOOD UREA NITROGEN 17 MG/DL (7-18); CALCIUM LEVEL 9.2 MG/DL (8.5-10.1); CARBON DIOXIDE LEVEL 29 MEQ/L (21-32); CHLORIDE LEVEL 104 MEQ/L (98-107); CHOLESTEROL LEVEL 282 MG/DL (<200); CHOLESTEROL RISK RATIO 4.406 (<5); CREATININE FOR GFR 0.84 MG/DL (0.55-1.30); FREE T4 0.86 NG/DL (0.76-1.46); GLOMERULAR FILTRATION RATE > 60.0 (>58); GLUCOSE, FASTING 88 MG/DL (70-100); HDL CHOLESTEROL 64 MG/DL (>40); LDL CHOLESTEROL 181 MG/DL (<100); NON-HDL-C 218 MG/DL; POTASSIUM SERUM 4.4 MEQ/L (3.5-5.1); SODIUM LEVEL 139 MEQ/L (136-145); TRIGLYCERIDES LEVEL 186 MG/DL (<150)
== END ==
LOC: M LAB 10:31
PROVIDERS: ATTEND Obstetrics & Gynecology
DX: E78.2 Mixed hyperlipidemia (principal); Z13.1 Encounter for screening for diabetes mellitus

== ENCOUNTER → 2020-08-30 | Outpatient (CLI) | payer OTHER ==
--- NOTE | 2020-08-30 09:22 | DEXAMM ---
INDICATION: BREAST CA,ON AI AND PROLIA. COMPARISON: Comparison study September 01, 2018 and July 14, 2016.. TECHNIQUE: Bone density was measured using dual-energy x-ray absorptionmetry (DEXA). FINDINGS: AP SPINE L1-L4 BMD 1.193 g/cm2 Young Adult T-Score 0.0 Age Matched Z-Score 0.4. LT FEMUR, TOTAL BMD 1.070 g/cm2 Young Adult T-Score 0.5 Age Matched Z-Score 1.0. LT NECK BMD 0.918 g/cm2 Young Adult T-Score -0.9 Age Matched Z-Score -0.1. RT FEMUR, TOTAL BMD 1.068 g/cm2 Young Adult T-Score 0.5 Age Matched Z-Score 0.9. RT NECK BMD 0.946 g/cm2 Young Adult T-Score -0.7 Age Matched Z-Score 0.1. IMPRESSION: There is normal bone density of the spine. There is normal bone density of the left hip. There is normal bone density of the right hip. The density of the spine has decreased 3.8% since the initial exam on July 14, 2016. The density of the spine increased 16.5% since most recent exam on September 01, 2018. The density of the left hip has decreased 3.8% since initial exam on July 14, 2016. The density of the left hip has increased 4.9% since most recent exam on September 01, 2018. The density of the right hip has increased 1.0% since the initial exam on July 14, 2016. The density of the right hip has increased 4.3% since the most recent exam on September 01, 2018. FOLLOW-UP: Recommendation for the next bone density exam: 5 years. <Electronically signed by James Quintanilla > 08/30/20 0918
== END ==
LOC: M WHC 08:02
PROVIDERS: ATTEND Internal Medicine Hematology & Oncology
DX: C50.919 Malignant neoplasm of unspecified site of unspecified female breast (principal)

== ENCOUNTER → 2020-10-09 | Outpatient (CLI) | payer OTHER ==
[2020-10-09 10:44] LABS: HEMOGLOBIN A1c 5.2 %
[2020-10-09 10:45] LABS: BLOOD UREA NITROGEN 14 MG/DL (7-18); CALCIUM LEVEL 9.7 MG/DL (8.5-10.1); CARBON DIOXIDE LEVEL 28 MEQ/L (21-32); CHLORIDE LEVEL 106 MEQ/L (98-107); CHOLESTEROL LEVEL 269 MG/DL (<200); CREATININE FOR GFR 0.64 MG/DL (0.55-1.30); GLOMERULAR FILTRATION RATE > 60.0 (>51); GLUCOSE, FASTING 95 MG/DL (70-100); HDL CHOLESTEROL 55 MG/DL (>40); LDL CHOLESTEROL 163 MG/DL (<100); NON-HDL-C 214 MG/DL; POTASSIUM SERUM 4.6 MEQ/L (3.5-5.1); SODIUM LEVEL 139 MEQ/L (136-145); TRIGLYCERIDES LEVEL 253 MG/DL (<150)
== END ==
LOC: M LAB 09:03
PROVIDERS: ATTEND Student in an Organized Health Care Education/Training Program
DX: Z68.35 Body mass index [BMI] 35.0-35.9, adult (principal)

== ENCOUNTER → 2020-11-07 | Outpatient (CLI) | payer OTHER ==
--- NOTE | 2020-11-07 11:27 | REP ---
INDICATION: PAIN IN LOWER LEFT LEG COMPARISON: None. TECHNIQUE: Bilateral lower extremity arterial ultrasound with Doppler FINDINGS: All numeric values represent peak systolic velocities in cm/SEC On the right: The ankle brachial index is 1.21. [employer]: 84 triphasic Profunda: 66 triphasic SFA proximal: 89 triphasic SFA Mid: 86 triphasic SFA distal: 82 triphasic Popliteal: 76 triphasic LUIS proximal: 73 triphasic Tibioperoneal trunk: 64 triphasic STUNT MAN proximal: 75 triphasic STUNT MAN distal: 65 triphasic LUIS distal: 80 triphasic On the left: The ankle brachial index is 1.14 [employer]: 89 triphasic Profunda: 71 triphasic SFA proximal: 82 triphasic SFA Mid: 93 triphasic SFA distal: 87 triphasic Popliteal: 72 triphasic LUIS proximal: 54 triphasic Tibioperoneal trunk: 62 triphasic STUNT MAN proximal: 82 triphasic STUNT MAN distal: 57 triphasic LUIS distal: 61 triphasic Only a minimal amount of plaque formation was seen throughout bilaterally IMPRESSION: As above <Electronically signed by Jasen Miles > 11/07/20 1630
== END ==
LOC: M RAD 10:27
PROVIDERS: ATTEND Student in an Organized Health Care Education/Training Program
DX: M25.562 Pain in left knee (principal)

== ENCOUNTER → 2021-05-14 | Outpatient (REF) | payer OTHER | LOC: M SFHCPLAZ 13:52 | PROVIDERS: ATTEND Family Medicine | DX: E78.5 Hyperlipidemia, unspecified (principal); Z53.9 Procedure and treatment not carried out, unspecified reason ==

== ENCOUNTER → 2021-06-28 | Outpatient (CLI) | payer OTHER | LOC: M RAD 13:29 | PROVIDERS: ATTEND Student in an Organized Health Care Education/Training Program | DX: M79.661 Pain in right lower leg (principal) ==

== ENCOUNTER → 2021-07-01 | Outpatient (CLI) | payer OTHER ==
[2021-07-01 10:51] LABS: CHOLESTEROL RISK RATIO 4.491 (<5)
== END ==
LOC: M LAB 09:06
PROVIDERS: ATTEND Family Medicine
DX: E78.5 Hyperlipidemia, unspecified (principal)

== ENCOUNTER → 2022-03-18 | Outpatient (CLI) | payer OTHER ==
[~2022-03-18] MED LIST changes: +AMIT10TA7; +BIOT1000 PO; +CALC-190 PO; +EXEM25TA; +GABA600T4; +PROL60SO SC; +TIZA10TA; +VENL37TA
== END ==
LOC: M LABSMTC 10:23
PROVIDERS: ATTEND Anesthesiology
DX: Z01.818 Encounter for other preprocedural examination (principal); Z11.52 Encounter for screening for COVID-19

== ENCOUNTER 2022-03-21 09:14 | Day surgery (SDC) | payer OTHER ==
[~2022-03-21] VITALS: Ht 157.5 cm; Wt 74.8 kg
[~2022-03-21 09:14] MED LIST changes: +NS 1,000 ML IV ONE
[2022-03-21] MEDS ORDERED: LIDOCAINE 2% 100MG/5ML SDV (FOR ANES.) As Ordered ONE (10:14)
[2022-03-21] MEDS ORDERED: propofoL 200 MG/20 ML VIAL As Ordered ONE (10:14)
[2022-03-21 11:00] VITALS: BP 129/87
== END 2022-03-21 11:14 | disposition home or self-care (01) ==
LOC: M OPP 09:14
PROVIDERS: ATTEND Internal Medicine Gastroenterology
DX: Z12.11 Encounter for screening for malignant neoplasm of colon (principal); K63.5 Polyp of colon; K64.4 Residual hemorrhoidal skin tags; K64.8 Other hemorrhoids; K57.30 Diverticulosis of large intestine without perforation or abscess without bleeding; G43.909 Migraine, unspecified, not intractable, without status migrainosus; Z79.899 Other long term (current) drug therapy; Z85.3 Personal history of malignant neoplasm of breast; Z92.3 Personal history of irradiation; Z92.21 Personal history of antineoplastic chemotherapy; R91.8 Other nonspecific abnormal finding of lung field

== ENCOUNTER → 2022-09-04 | Outpatient (CLI) | payer OTHER ==
[~2022-09-04] MED LIST changes: -NS 1,000 ML IV ONE
== END ==
LOC: M WHC 07:33
PROVIDERS: ATTEND Internal Medicine Hematology & Oncology
DX: C50.411 Malignant neoplasm of upper-outer quadrant of right female breast (principal); C50.812 Malignant neoplasm of overlapping sites of left female breast; M85.852 Other specified disorders of bone density and structure, left thigh

== ENCOUNTER → 2022-12-03 | Outpatient (CLI) | payer OTHER ==
[~2022-12-03] MED LIST changes: -AMIT10TA7; +AMIT10TA7 PO; +EXEM25TA PO; -GABA600T4; +GABA600T4 PO; +SEMA0.252 SQ; +SEMA0.5P SQ; -TIZA10TA; +TIZA10TA PO; -VENL37TA; +VENL37TA PO
[2022-12-03 14:25] LABS: ALKALINE PHOSPHATASE 122 U/L (46-116); ALT/SGPT 28 U/L (7.0-40); AST/SGOT 12 U/L (<34); BILIRUBIN,TOTAL 0.5 MG/DL (0.3-1.2); BLOOD UREA NITROGEN 17 MG/DL (9-23); CALCIUM LEVEL 9.3 MG/DL (8.5-10.1); CARBON DIOXIDE LEVEL 27 MMOL/L (20-31); CHLORIDE LEVEL 103 MMOL/L (98-107); CREATININE FOR GFR 0.72 MG/DL (0.55-1.30); GLOMERULAR FILTRATION RATE > 60.0 (>51); GLUCOSE, FASTING 119 MG/DL (60-100); POTASSIUM SERUM 4.1 MMOL/L (3.5-5.1); SODIUM LEVEL 140 MMOL/L (136-145); TOTAL PROTEIN 7.1 G/DL (5.7-8.2)
== END ==
LOC: M LAB 13:36
PROVIDERS: ATTEND Student in an Organized Health Care Education/Training Program
DX: E87.5 Hyperkalemia (principal)

== ENCOUNTER → 2023-01-06 | Outpatient (CLI) | payer OTHER ==
[2023-01-06 17:50] LABS: ALBUMIN 4.2 G/DL (3.2-5.2); ALKALINE PHOSPHATASE 89 U/L (46-116); ALT/SGPT 23 U/L (7.0-40); AST/SGOT 9 U/L (<34); BILIRUBIN,TOTAL 0.5 MG/DL (0.3-1.2); BLOOD UREA NITROGEN 15 MG/DL (9-23); CARBON DIOXIDE LEVEL 29 MMOL/L (20-31); CHLORIDE LEVEL 103 MMOL/L (98-107); CREATININE FOR GFR 0.88 MG/DL (0.55-1.30); GLOMERULAR FILTRATION RATE > 60.0 (>51); GLUCOSE, FASTING 94 MG/DL (60-100); POTASSIUM SERUM 4.4 MMOL/L (3.5-5.1); SODIUM LEVEL 140 MMOL/L (136-145); TOTAL PROTEIN 7.3 G/DL (5.7-8.2)
== END ==
LOC: M LAB 16:17
PROVIDERS: ATTEND Student in an Organized Health Care Education/Training Program
DX: E78.5 Hyperlipidemia, unspecified (principal)

== ENCOUNTER → 2023-02-11 | Outpatient (CLI) | payer OTHER ==
[2023-02-11 18:51] LABS: ALBUMIN 4.3 G/DL (3.2-5.2); ALKALINE PHOSPHATASE 87 U/L (46-116); ALT/SGPT 23 U/L (7.0-40); AST/SGOT 16 U/L (<34); BILIRUBIN,TOTAL 0.4 MG/DL (0.3-1.2); BLOOD UREA NITROGEN 9 MG/DL (9-23); CALCIUM LEVEL 9.9 MG/DL (8.5-10.1); CARBON DIOXIDE LEVEL 28 MMOL/L (20-31); CHLORIDE LEVEL 104 MMOL/L (98-107); CREATININE FOR GFR 0.82 MG/DL (0.55-1.30); GLOMERULAR FILTRATION RATE > 60.0 (>51); GLUCOSE, FASTING 83 MG/DL (60-100); POTASSIUM SERUM 4.1 MMOL/L (3.5-5.1); SODIUM LEVEL 139 MMOL/L (136-145); TOTAL PROTEIN 7.1 G/DL (5.7-8.2)
== END ==
LOC: M LAB 17:56
PROVIDERS: ATTEND Student in an Organized Health Care Education/Training Program
DX: I10 Essential (primary) hypertension (principal)

== ENCOUNTER → 2023-08-29 | Outpatient (CLI) | payer OTHER ==
[~2023-08-29] MED LIST changes: +AMOX875T
[2023-08-29 09:07] LABS: BASO # 0.1 10^3/uL (0.0-0.2); BASO % 1.1 % (0.0-1.0); EOS # 0.1 10^3/uL (0.0-0.5); EOS % 2.4 % (0.0-3.0); HEMOGLOBIN 13.6 g/dl (12.0-15.5); LYMPH # 1.3 10^3/uL (1.5-5.0); LYMPH % 28.3 % (24.0-44.0); MEAN CORPUSCULAR HGB CONC 33.2 g/dl (32.0-36.5); MEAN CORPUSCULAR VOLUME 93.4 fl (80.0-96.0); MONO # 0.5 10^3/uL (0.0-0.8); MONO % 10.5 % (2.0-8.0); NEUTROPHILS # 2.7 10^3/uL (1.5-8.5); NEUTROPHILS % 57.5 % (36.0-66.0); PLATELET COUNT, AUTOMATED 282 10^3/uL (150-450); RED BLOOD COUNT 4.39 10^6/uL (4.00-5.40); WHITE BLOOD COUNT 4.7 10^3/uL (4.0-10.0)
[2023-08-29 09:29] LABS: ALBUMIN 3.8 G/DL (3.2-5.2); ALKALINE PHOSPHATASE 107 U/L (46-116); ALT/SGPT 29 U/L (7.0-40); AST/SGOT 15 U/L (<34); BILIRUBIN,TOTAL 0.4 MG/DL (0.3-1.2); BLOOD UREA NITROGEN 14 MG/DL (9-23); CALCIUM LEVEL 9.7 MG/DL (8.5-10.1); CARBON DIOXIDE LEVEL 29 MMOL/L (20-31); CHLORIDE LEVEL 104 MMOL/L (98-107); CHOLESTEROL LEVEL 253 MG/DL (<200); CHOLESTEROL RISK RATIO 4.69 (<5); CREATININE FOR GFR 0.76 MG/DL (0.55-1.30); FOLATE > 24.0 NG/ML (>5.4); GLOMERULAR FILTRATION RATE > 60.0 (>51); GLUCOSE, FASTING 73 MG/DL (60-100); HDL CHOLESTEROL 53.9 MG/DL (>40); LDL CHOLESTEROL 165.1 MG/DL (<100); NON-HDL-C 199.1 MG/DL; POTASSIUM SERUM 4.6 MMOL/L (3.5-5.1); SODIUM LEVEL 139 MMOL/L (136-145); THYROID STIMULATING HORMONE 2.624 uIU/ML (0.55-4.78); TOTAL PROTEIN 6.8 G/DL (5.7-8.2); TRIGLYCERIDES LEVEL 170 MG/DL (<150)
[2023-08-29 09:30] LABS: VITAMIN B12 LEVEL 796 PG/ML (211-911)
[2023-08-29 09:31] LABS: FREE T4 0.97 NG/DL (0.89-1.76)
[2023-08-29 09:38] LABS: HEMOGLOBIN A1c 4.9 % (4.0-6.0)
== END ==
LOC: M LAB 08:10
PROVIDERS: ATTEND Student in an Organized Health Care Education/Training Program
DX: E78.5 Hyperlipidemia, unspecified (principal); C50.911 Malignant neoplasm of unspecified site of right female breast; C50.912 Malignant neoplasm of unspecified site of left female breast

== ENCOUNTER → 2023-09-14 | Outpatient (CLI) | payer OTHER ==
[~2023-09-14] MED LIST changes: +ISOVUE-370 76% 100ML VIAL As Ordered ONE
== END ==
LOC: M RAD 07:28
PROVIDERS: ATTEND Internal Medicine Medical Oncology
DX: C50.919 Malignant neoplasm of unspecified site of unspecified female breast (principal); R91.1 Solitary pulmonary nodule

== ENCOUNTER → 2023-10-20 | Outpatient (CLI) | payer OTHER ==
[~2023-10-20] MED LIST changes: -ISOVUE-370 76% 100ML VIAL As Ordered ONE
== END ==
LOC: M PLARAD 13:27
PROVIDERS: ATTEND Internal Medicine Medical Oncology
DX: R91.8 Other nonspecific abnormal finding of lung field (principal)
CPT/HCPCS: 78815; A9552

== ENCOUNTER → 2024-09-05 | Outpatient (CLI) | payer OTHER ==
[~2024-09-05] MED LIST changes: +DENO60SY2 SC; +GABA-1490 PO; -GABA600T4 PO; -PROL60SO SC
== END ==
LOC: M WHC 14:43
PROVIDERS: ATTEND Internal Medicine
DX: M81.0 Age-related osteoporosis without current pathological fracture (principal)

== ENCOUNTER → 2025-01-18 | Outpatient (REF) | payer OTHER ==
[~2025-01-18] MED LIST changes: +AMIT10TA11 PO; -AMIT10TA7 PO; -BIOT1000 PO; +BIOT10002 PO
[2025-01-20 13:18] LABS: HPV APTIMA Not Detected (Not Detected)
== END ==
LOC: M PLALAB 10:37
PROVIDERS: ATTEND Obstetrics & Gynecology
DX: Z12.4 Encounter for screening for malignant neoplasm of cervix (principal); Z77.9 Other contact with and (suspected) exposures hazardous to health; N88.8 Other specified noninflammatory disorders of cervix uteri; N95.2 Postmenopausal atrophic vaginitis
CPT/HCPCS: 87624; G0123

== ENCOUNTER → 2025-01-27 | Outpatient (CLI) | payer OTHER ==
[2025-01-27 11:22] LABS: BASO # 0.1 10^3/uL (0.0-0.2); BASO % 1.3 % (0.0-1.0); EOS # 0.1 10^3/uL (0.0-0.5); EOS % 2.4 % (0.0-3.0); LYMPH # 1.6 10^3/uL (1.5-5.0); LYMPH % 34.6 % (24.0-44.0); MONO # 0.6 10^3/uL (0.0-0.8); MONO % 12.4 % (2.0-8.0); NEUTROPHILS # 2.2 10^3/uL (1.5-8.5); NEUTROPHILS % 49.1 % (36.0-66.0); PLATELET COUNT, AUTOMATED 309 10^3/uL (150-450)
[2025-01-27 11:30] LABS: ESTIMATED AVERAGE GLUCOSE 103.0 MG/DL (60-110)
[2025-01-27 11:50] LABS: ALT/SGPT 29 U/L (7.0-40); AST/SGOT 17 U/L (<34); CALCIUM LEVEL 9.9 MG/DL (8.5-10.1); CARBON DIOXIDE LEVEL 30 MMOL/L (20-31); CHLORIDE LEVEL 100 MMOL/L (98-107); CHOLESTEROL LEVEL 265 MG/DL (<200); CHOLESTEROL RISK RATIO 4.16 (<5); CREATININE FOR GFR 0.81 MG/DL (0.55-1.30); GLOMERULAR FILTRATION RATE 86.2 (>51); LDL CHOLESTEROL 163.9 MG/DL (<100); NON-HDL-C 201.3 MG/DL; POTASSIUM SERUM 4.9 MMOL/L (3.5-5.1); SODIUM LEVEL 139 MMOL/L (136-145); TRIGLYCERIDES LEVEL 187 MG/DL (<150)
[2025-01-27 11:51] LABS: FREE T4 1.31 NG/DL (0.89-1.76)
[2025-01-27 11:52] LABS: VITAMIN B12 LEVEL 501 PG/ML (211-911)
[2025-01-27 11:54] LABS: CORTISOL AM 9.5 UG/DL (4.3-22.4)
== END ==
LOC: M LAB 01-26 12:19
PROVIDERS: ATTEND Family Medicine
DX: I10 Essential (primary) hypertension (principal); Z13.1 Encounter for screening for diabetes mellitus; E78.5 Hyperlipidemia, unspecified; R53.83 Other fatigue